=== PATIENT | female | born 1935 | race Caucasian/White ===

== ENCOUNTER 2017-03-07 15:25 | Emergency (ER) | payer OTHER ==
[~2017-03-07] VITALS: Ht 152.4 cm; Wt 65.0 kg
[~2017-03-07 15:25] MED LIST: CALC-137 PO; CETI10 PO; CLON.1 PO; D3400CAP PO; DONE5TAB14 PO; FLUO20TA20 PO; MESA800 PO
[2017-03-07 15:29] VITALS: BP 175/72; PULSE 69; RESP 14; TEMP 97.6; O2SAT 96
[2017-03-07] MEDS ORDERED: SODIUM CHLOR 0.9% 1000 ML INJ 1,000 ML IV SCH (15:49)
--- NOTE | 2017-03-07 15:51 | PD ---
HPI Chief Complaint: GI Complaint Time Seen by Provider: 15:51 Travel History International Travel<30 days: No Contact w/Intl Traveler<30days: No Traveled to known affect area: No History of Present Illness HPI 81 year-old female history of dementia, Crohn's disease, presents to the emergency department with her family for evaluation of nausea and vomiting for the last 2-3 days. Patient has also had diarrhea but at times does due to her Crohn's so her family is not as concerned about this. She has had no hematemesis or hematuria or hematochezia. Patient has been otherwise been acting herself. She has had no fever or chills. She does report some left lower abdominal pain, described as a "pinch". Denies any urinary symptoms. Denies chest pain or tightness. No difficulty breathing. She has no other symptoms to report. PFSH Past Medical History Arthritis: Yes Asthma: No Blood Disorders: No Anxiety: Yes Depression: Yes Heart Rhythm Problems: No Cancer: No Cardiovascular Problems: Yes (HTN) High Cholesterol: Yes Chest Pain: No Congestive Heart Failure: No COPD: No Cerebrovascular Accident: Yes (2 years ) Dementia: Yes Diabetes: No Diminished Hearing: No Endocrine: No Gastrointestinal Disorders: Yes (Crohns disease) Genitourinary: No Headaches: Yes Hypertension: Yes Immune Disorder: No Implanted Vascular Access Dvce: No Musculoskeletal: Yes Neurologic: Yes (CVA 2016) Psychiatric: Yes Reproductive: No Respiratory: Yes (hx: resp infections) Immunizations Current: Yes Migraines: No Seizures: No Shingles: Yes Sleep Apnea: No Menopausal: Yes Past Surgical History Abdominal Surgery: Yes (bowel resection for Crohns. ) AICD: No Insulin Pump: No Joint Replacement: No Pacemaker: No Other Surgery: Yes Social History Alcohol Use: Yes (1X PER WEEK) Tobacco Use: No Substance Use: No Allergies-Medications (Allergen,Severity, Reaction): Coded Allergies: Promethazine (Verified Allergy, Severe, SEIZURE, 06/24/16) Reported Meds & Prescriptions Reported Meds & Active Scripts Active Zofran Odt (Ondansetron Odt) 4 Mg Tab 4 Mg SL Q6HR PRN Flagyl (Metronidazole) 500 Mg Tab 500 Mg PO TID 10 Days Cipro (Ciprofloxacin HCl) 500 Mg Tab 500 Mg PO BID 10 Days Reported Calcium (Calcium Carbonate) 600 Mg Tab 600 Mg PO BID Zyrtec (Cetirizine HCl) 10 Mg Tablet 10 Mg PO DAILY PRN Vitamin D3 (Cholecalciferol) 1,000 Unit Tab 1,000 Units PO DAILY Catapres (Clonidine) 0.1 Mg Tab 0.1 Mg PO Q6HR PRN Namenda (Memantine) 10 Mg Tab 10 Mg PO BID Paxil (Paroxetine HCl) 20 Mg Tablet 20 Mg PO HS Lialda (Mesalamine) 1.2 Gm Tabdr 1.2 Gm PO BID Take with a meal. Imuran (Azathioprine) 50 Mg Tab 50 Mg PO DAILY Hazardous agent: use appropriate precautions for handling and disposal. Protonix (Pantoprazole Sodium) 40 Mg Tab 40 Mg PO DAILY Questran (Cholestyramine) 4 Gm/Pkt Powd 4 Gm PO BID 1 packet contains 4gm of cholestyramine. Zantac (Ranitidine HCl) 150 Mg Tab 150 Mg PO BID Acetaminophen Pm Caplet (Acetaminophen/Diphenhydramine) 1 Each Tablet 2,000 Mg PO HS Tylenol Extra Strength (Acetaminophen) 500 Mg Tablet 2,000 Mg PO Q6HR PRN Loperamide (Loperamide HCl) 2 Mg Tablet 2 Mg PO 3X A WEEK Tessalon Perles (Benzonatate) 100 Mg Cap 200 Mg PO TID PRN Elidel 1% Topical (Pimecrolimus 1% Topical) 30 Gram Cream 1 Applic TOPICAL BID Bactroban Topical (Mupirocin) 22 Gm Cream 1 Applic TOPICAL BID Review of Systems Except as stated in HPI: all other systems reviewed are Neg Physical Exam Narrative GENERAL: Well-nourished elderly female patient, in no acute distress SKIN: Focused skin assessment warm/dry. HEAD: Atraumatic. Normocephalic. EYES: Pupils equal and round. No scleral icterus. No injection or drainage. ENT: No nasal bleeding or discharge. Mucous membranes pink and moist. NECK: Trachea midline. No JVD. CARDIOVASCULAR: Regular rate and rhythm. No murmur appreciated. RESPIRATORY: No accessory muscle use. Clear to auscultation. Breath sounds equal bilaterally. GASTROINTESTINAL: Abdomen soft,nondistended. Left lower quadrant tenderness to palpation.. Hepatic and splenic margins not palpable. MUSCULOSKELETAL: No obvious deformities. No clubbing. No cyanosis. No edema. NEUROLOGICAL: Awake and alert. No obvious cranial nerve deficits. Motor grossly within normal limits. Normal speech. Data Data Last Documented VS Vital Signs Date Time Temp Pulse Resp B/P Pulse Ox O2 Delivery O2 Flow Rate FiO2 03/07/17 19:52 69 14 152/77 97 03/07/17 17:11 Room Air 03/07/17 15:29 97.6 Orders Complete Blood Count With Diff (03/07/17 15:49) Comprehensive Metabolic Panel (03/07/17 15:49) Lipase (03/07/17 15:49) Prothrombin Time / Inr (Pt) (03/07/17 15:49) Act Partial Throm Time (Ptt) (03/07/17 15:49) Urinalysis - C+S If Indicated (03/07/17 15:49) Ct Abd/Pel W Iv Contrast(Rout) (03/07/17 15:49) Iv Access Insert/Monitor (03/07/17 15:49) Ecg Monitoring (03/07/17 15:49) Oximetry (03/07/17 15:49) Ondansetron Inj (Zofran Inj) (03/07/17 16:00) Sodium Chlor 0.9% 1000 Ml Inj (Ns 1000 M (03/07/17 15:49) Sodium Chloride 0.9% Flush (Ns Flush) (03/07/17 16:00) Electrocardiogram (03/07/17 15:49) Chest, Single Ap (03/07/17 15:49) Iohexol 350 Inj (Omnipaque 350 Inj) (03/07/17 17:42) Ciprofloxacin (Cipro) (03/07/17 20:15) Metronidazole (Flagyl) (03/07/17 20:15) Ondansetron Odt (Zofran Odt) (03/07/17 20:15) Labs Laboratory Tests Test 03/07/17 03/07/17 16:00 18:10 White Blood Count 8.7 TH/MM3 Red Blood Count 4.27 MIL/MM3 Hemoglobin 13.2 GM/DL Hematocrit 38.4 % Mean Corpuscular Volume 90.0 FL Mean Corpuscular Hemoglobin 30.9 PG Mean Corpuscular Hemoglobin 34.4 % Concent Red Cell Distribution Width 12.9 % Platelet Count 193 TH/MM3 Mean Platelet Volume 8.7 FL Neutrophils (%) (Auto) 87.6 % Lymphocytes (%) (Auto) 7.0 % Monocytes (%) (Auto) 4.5 % Eosinophils (%) (Auto) 0.6 % Basophils (%) (Auto) 0.3 % Neutrophils # (Auto) 7.6 TH/MM3 Lymphocytes # (Auto) 0.6 TH/MM3 Monocytes # (Auto) 0.4 TH/MM3 Eosinophils # (Auto) 0.1 TH/MM3 Basophils # (Auto) 0.0 TH/MM3 CBC Comment DIFF FINAL Differential Comment Prothrombin Time 11.3 SEC Prothromb Time International 1.0 RATIO Ratio Activated Partial 23.9 SEC Thromboplast Time Sodium Level 138 MEQ/L Potassium Level 4.0 MEQ/L Chloride Level 106 MEQ/L Carbon Dioxide Level 23.5 MEQ/L Anion Gap 9 MEQ/L Blood Urea Nitrogen 21 MG/DL Creatinine 0.65 MG/DL Estimat Glomerular Filtration 87 ML/MIN Rate Random Glucose 114 MG/DL Calcium Level 9.6 MG/DL Total Bilirubin 0.9 MG/DL Aspartate Amino Transf 31 U/L (AST/SGOT) Alanine Aminotransferase 28 U/L (ALT/SGPT) Alkaline Phosphatase 84 U/L Total Protein 8.0 GM/DL Albumin 3.6 GM/DL Lipase 150 U/L Urine Color YELLOW Urine Turbidity CLEAR Urine pH 6.0 Urine Specific [place] 1.035 Urine Protein TRACE mg/dL Urine Glucose (UA) NEG mg/dL Urine Ketones TRACE mg/dL Urine Occult Blood NEG Urine Nitrite NEG Urine Bilirubin NEG Urine Urobilinogen LESS THAN 2.0 MG/DL Urine Leukocyte Esterase NEG Urine WBC LESS THAN 1 /hpf Urine Squamous Epithelial <1 /hpf Cells Urine Mucus FEW /lpf Microscopic Urinalysis Comment CULT NOT INDICATED MDM Medical Decision Making Medical Screen Exam Complete: Yes Emergency Medical Condition: Yes Medical Record Reviewed: Yes Differential Diagnosis Gastritis versus colitis versus gastroenteritis versus diverticulitis versus electrolyte abnormality versus UTI versus dehydration Narrative Course 81-year-old female presents to the emergency department for evaluation. Patient appears without distress. She does have some tenderness to palpation in the left lower quadrant. CBC and CMP are without acute concern. Urinalysis is unremarkable. CT imaging of the abdomen and pelvis shows acute diverticulitis in the sigmoid colon. It also shows a left lobe hepatic cyst. A left upper pole renal cyst. Postsurgical changes in the right side of the colon. Last Impressions Chest X-Ray 03/07/17 0596 Signed Impressions: Service Date/Time: Tuesday, March 07, 2017 16:04 - CONCLUSION: 1. No acute findings identified. Cy Garcia MD Patient is sitting up in the bed, eating ice chips and drinking Gatorade. I discussed the patient with my attending physician. She'll be started on Cipro and Flagyl. She'll be discharged home at this time to follow-up with primary care provider. She agrees to return immediately with any acute worsening of symptoms.. Diagnosis Primary Impression: Diverticulitis Qualified Code: K57.32 - Diverticulitis of large intestine without perforation or abscess without bleeding Additional Impressions: Nausea & vomiting Qualified Code: R11.2 - Non-intractable vomiting with nausea, unspecified vomiting type Diarrhea Qualified Code: R19.7 - Diarrhea, unspecified type Referrals: [facility] Writer / Runner Primary Care Physician Patient Instructions: Diverticulitis (ED), Diverticulitis Diet (ED), General Instructions Additional Instructions: [place] diet Start with clear liquids and advance as tolerated Follow-up with a primary care provider Return immediately with any acute worsening of symptoms Med/Other Pt SpecificInfo: Prescription(s) given Scripts Ondansetron Odt (Zofran Odt)4 Mg Tab4 Mg SL Q6HR PRN (Nausea/Vomiting) #15 TAB Ref 0 Prov:Rupinder [place] 03/07/17 Metronidazole (Flagyl)500 Mg [id number] Mg PO TID 10 Days Ref 0 Prov:Rupinder [place] 03/07/17 Ciprofloxacin (Cipro)500 Mg [id number] Mg PO BID 10 Days Ref 0 Prov:Rupinder [place] 03/07/17 Disposition: 01 DISCHARGE HOME Condition: Stable Rupinder [place] Mar 07, 2017 15:51
[2017-03-07] MEDS ORDERED: ONDANSETRON HCL 4 MG/2 ML VIAL IVP ONE (16:00)
[2017-03-07] MEDS ORDERED: SODIUM CHLORIDE 0.9% FLUSH 10 ML FLUSH IV FLUSH PRN (16:00)
[2017-03-07 16:26] LABS: AUTOMATED NEUTROPHIL # 7.6 TH/MM3 (1.8-7.7); BASOPHIL % 0.3 % (0.0-2.0); EOSINOPHIL # 0.1 TH/MM3 (0-0.4); EOSINOPHIL % 0.6 % (0.0-4.0); HEMATOCRIT 38.4 % (35.0-46.0); HEMO FLAGS DIFF FINAL; LYMPHOCYTE # 0.6 TH/MM3 (1.0-4.8); MEAN CORPUSCULAR HEMOGLOBIN 30.9 PG (27.0-34.0); MEAN CORPUSCULAR HGB CONC 34.4 % (32.0-36.0); MONO % 4.5 % (0.0-8.0); NEUT % 87.6 % (16.0-70.0); PLATELET COUNT 193 TH/MM3 (150-450); RED BLOOD COUNT 4.27 MIL/MM3 (4.00-5.30); RED CELL DISTRIBUTION WIDTH 12.9 % (11.6-17.2); WHITE BLOOD COUNT 8.7 TH/MM3 (4.0-11.0)
--- NOTE | 2017-03-07 16:34 | RADRPT ---
EXAM DATE/TIME: 03/07/2017 16:04 [facility] COMPARISON: SPINE LUMBAR LTD (AP & LAT), June 24, 2016, 12:07. INDICATIONS : Shortness of breath, nausea, and vomitting. MEDICAL HISTORY : Hypertension. SURGICAL HISTORY : None. ENCOUNTER: Initial ACUITY: 3 days PAIN SCORE: 0/10 LOCATION: Bilateral chest FINDINGS: There are mild chronic interstitial changes within the pulmonary parenchyma. The heart is normal in s ize. The visualized bony structures are grossly intact. CONCLUSION: 1. No acute findings identified. Cy Garcia MD on March 07, 2017 at 16:31 Board Certified Radiologist. This report was verified electronically.
[2017-03-07 16:49] LABS: ALT (GPT) 28 U/L (10-53); ANION GAP 9 MEQ/L (5-15); AST (GOT) 31 U/L (15-37); BICARBONATE 23.5 MEQ/L (21.0-32.0); BLOOD UREA NITROGEN 21 MG/DL (7-18); CHLORIDE 106 MEQ/L (98-107); GLOMERULAR FILTRATION RATE 87 ML/MIN (>89); SODIUM (NA) 138 MEQ/L (136-145)
[2017-03-07 16:51] LABS: ALKALINE PHOSPHATASE 84 U/L (45-117); APTT (PATIENT) 23.9 SEC (24.3-30.1); PROTHROMBIN TIME - PATIENT 11.3 SEC (9.8-11.6); TOTAL BILIRUBIN ADULT 0.9 MG/DL (0.2-1.0)
[2017-03-07] MEDS ORDERED: IOHEXOL 350 MG/ML 10 ML VIAL (for RAD DIAG) IV ONE (17:42)
[2017-03-07 19:07] LABS: BLOOD, URINE NEG (NEG); COMMENT (UR) CULT NOT INDICATED; CULTURE IF INDICATED CULT NOT INDICATED; GLUCOSE,URINE NEG (NEG); KETONE, URINE TRACE mg/dL (NEG); MUCUS URINE FEW /lpf (OCC); NITRITE,URINE NEG (NEG); SQUAMOUS EPITHELIAL CELL URINE <1 /hpf (0-5); URINE COLOR YELLOW (YELLW/STRAW)
[2017-03-07 19:52] VITALS: BP 152/77; PULSE 69; RESP 14; O2SAT 97
[2017-03-07] MEDS ORDERED: metroNIDAZOLE 500 MG TAB PO ONE (20:15)
[2017-03-07] MEDS ORDERED: ONDANSETRON ODT 4 MG TAB PO ONE (20:15)
[2017-03-07] MEDS ORDERED: CIPROFLOXACIN 500 MG TAB PO ONE (20:15)
[2017-03-07] MEDS ORDERED: METR-1 PO (20:16)
[2017-03-07] MEDS ORDERED: CIPR-9 PO (20:16)
[2017-03-07] MEDS ORDERED: ZOFR4TAB3 SL (20:16)
[2017-03-07] MEDS ORDERED: MUPI2%T TOPICAL (20:27)
[2017-03-07] MEDS ORDERED: ELID1CRE TOPICAL (20:28)
[2017-03-07] MEDS ORDERED: LOPE2TAB21 PO (20:33)
[2017-03-07] MEDS ORDERED: BENZ100 PO (20:33)
[2017-03-07] MEDS ORDERED: ACET-822 PO (20:33)
[2017-03-07] MEDS ORDERED: ACET25TA2 PO (20:34)
[2017-03-07] MEDS ORDERED: CETI-1 PO (20:46)
[2017-03-07] MEDS ORDERED: VITA100018 PO (20:46)
[2017-03-07] MEDS ORDERED: QUES4POW PO (20:46)
[2017-03-07] MEDS ORDERED: PROT40TA PO (20:46)
[2017-03-07] MEDS ORDERED: IMUR50TA PO (20:46)
[2017-03-07] MEDS ORDERED: LIAL1.2T PO (20:46)
[2017-03-07] MEDS ORDERED: NAME10TA PO (20:46)
[2017-03-07] MEDS ORDERED: PAXI20TA10 PO (20:46)
[2017-03-07] MEDS ORDERED: ZANT150T2 PO (20:46)
[2017-03-07] MEDS ORDERED: CALC600T25 PO (20:46)
[2017-03-07] MEDS ORDERED: CLON.1 PO (20:46)
--- NOTE | 2017-03-08 04:24 | RADRPT ---
EXAM DATE/TIME: 03/07/2017 17:32 [facility] COMPARISON: CT ABDOMEN & PELVIS W CONTRAST, August 17, 2015, 18:58. INDICATIONS : Abdominal pain with nausea and vomiting. IV CONTRAST: 90 cc Omnipaque 350 (iohexol) IV ORAL CONTRAST: No oral contrast ingested. RADIATION DOSE: 9.96 CTDIvol (mGy) MEDICAL HISTORY : Cardiovascular disease. Hypertension. Dementia.CVA 2015 SURGICAL HISTORY : bowel resection for Crohn's disease ENCOUNTER: Initial ACUITY: 1 day PAIN SCALE: 0/10 LOCATION: lower quadrant TECHNIQUE: Volumetric scanning of the abdomen and pelvis was performed. Using automated exposure control and ad justment of the mA and/or kV according to patient size, radiation dose was kept as low as reasonably achievable to obtain optimal diagnostic quality images. FINDINGS: LOWER LUNGS: Mild chronic bilateral lower lobe interstitial opacity. LIVER: 1.1 cm round hypodensity in the left lobe of the liver is unchanged. Liver is otherwise homogeneous a nd within normal limits. Gallbladder is distended. No pericholecystic inflammatory changes identified . Appearance is very similar to the prior study of 2014. SPLEEN: Normal size without lesion. PANCREAS: Within normal limits. KIDNEYS: 2.1 cm cyst in the upper pole of the left kidney. Kidneys otherwise within normal limits. No evidence of hydronephrosis. ADRENAL GLANDS: Within normal limits. VASCULAR: Diffuse aortic calcification. Aortic diameter are within normal limits. BOWEL/MESENTERY: Small hiatal hernia. No evidence of bowel dilatation. Numerous colonic diverticula. There is a fluid filled diverticulum of the mid sigmoid colon with mild surrounding hazy/stranding opacity indicating acute diverticulitis. Postsurgical findings of the right side of the colon. Appendix not identified. No free air or free fluid. ABDOMINAL WALL: Within normal limits. RETROPERITONEUM: There is no lymphadenopathy. BLADDER: No wall thickening or mass. REPRODUCTIVE: Calcified uterine fibroid in the fundus. INGUINAL: There is no lymphadenopathy or hernia. MUSCULOSKELETAL: Prominent degenerative findings of the lower lumbar spine facet joints. CONCLUSION: 1. Acute sigmoid colon diverticulitis. No evidence of abscess or free air. 2. Left lobe hepatic cyst unchanged. 3. Left upper pole renal cyst. 4. Lumbar spine degenerative findings. 5. Postsurgical findings right-sided colon. Tyler Hill MD on March 07, 2017 at 19:39 Board Certified Radiologist. This report was verified electronically.
--- NOTE | 2017-03-08 13:29 | EKG ---
Date Performed: 03/07/2017 Time Performed: 17:14:37 PTAGE: 81 years EKG: Sinus rhythm NORMAL ECG PREVIOUS TRACING : 12/22/2015 18.04 Compared to prior tracing no significant change DOCTOR: David Rausch Interpretating Date/Time 03/08/2017 13:27:22
== END 2017-03-07 21:17 | disposition home or self-care (01) ==
LOC: NEPC 15:25
DX: K57.32 Diverticulitis of large intestine without perforation or abscess without bleeding (principal); R11.2 Nausea with vomiting, unspecified; R19.7 Diarrhea, unspecified; F03.90 Unspecified dementia, unspecified severity, without behavioral disturbance, psychotic disturbance, mood disturbance, and anxiety; K50.90 Crohn's disease, unspecified, without complications; I10 Essential (primary) hypertension; E78.00 Pure hypercholesterolemia, unspecified; Z86.73 Personal history of transient ischemic attack (TIA), and cerebral infarction without residual deficits
CPT/HCPCS: 71010; 74177; 80053; 81001; 83690; 85025; 85610; 85730; 93005; 96374; 99284; J2405; J7030; Q9967

== ENCOUNTER 2017-09-04 11:53 | Emergency (ER) | payer OTHER ==
[~2017-09-04] VITALS: Ht 152.4 cm; Wt 55.0 kg
[~2017-09-04 11:53] MED LIST changes: +ACET-822 PO; +BENZ100 PO; -CALC-137 PO; +CALC600T5 PO; +CETI-1 PO; -CETI10 PO; +CIPR-9 PO; -D3400CAP PO; +DIPH25TA31 PO; -DONE5TAB14 PO; +ELID1CRE TOPICAL; -FLUO20TA20 PO; +IMUR50TA5 PO; +LIAL1.2T PO; +LOPE2TAB21 PO; -MESA800 PO; +METR-1 PO; +MUPI2%T TOPICAL; +NAME10TA PO; +PAXI20TA26 PO; +PROT40TA PO; +QUES4POW PO; +VITA100018 PO; +ZANT150T2 PO; +ZOFR4TAB3 SL
[2017-09-04 11:55] VITALS: BP 122/60; PULSE 75; RESP 17; TEMP 98.1; O2SAT 100
[2017-09-04] MEDS ORDERED: ONDANSETRON HCL 4 MG/2 ML VIAL IVP ONE (12:30)
[2017-09-04 13:35] LABS: BASOPHIL % 0.6 % (0.0-2.0); EOSINOPHIL # 0.2 TH/MM3 (0-0.4); EOSINOPHIL % 2.5 % (0.0-4.0); HEMATOCRIT 39.3 % (35.0-46.0); HEMOGLOBIN 13.1 GM/DL (11.6-15.3); LYMPH % 11.6 % (9.0-44.0); LYMPHOCYTE # 0.8 TH/MM3 (1.0-4.8); MEAN CELL VOLUME 92.6 FL (80.0-100.0); MEAN CORPUSCULAR HEMOGLOBIN 30.9 PG (27.0-34.0); MEAN CORPUSCULAR HGB CONC 33.3 % (32.0-36.0); MONO % 9.3 % (0.0-8.0); MONOCYTE # 0.6 TH/MM3 (0-0.9); PLATELET COUNT 231 TH/MM3 (150-450); RED BLOOD COUNT 4.24 MIL/MM3 (4.00-5.30); RED CELL DISTRIBUTION WIDTH 13.6 % (11.6-17.2); WHITE BLOOD COUNT 6.6 TH/MM3 (4.0-11.0)
[2017-09-04] MEDS ORDERED: SODIUM CHLORID 0.9% 500 ML INJ 500 ML IV ONE (13:45)
[2017-09-04 13:49] LABS: INTERNATIONAL NORMALIZED RATIO 1.2 RATIO
[2017-09-04 13:54] LABS: ALBUMIN 3.8 GM/DL (3.4-5.0); AST (GOT) 33 U/L (15-37); BICARBONATE 26.6 MEQ/L (21.0-32.0); CALCIUM 9.5 MG/DL (8.5-10.1); CHLORIDE 106 MEQ/L (98-107); CREATININE 0.82 MG/DL (0.50-1.00); GLOMERULAR FILTRATION RATE 67 ML/MIN (>89); GLUCOSE,RANDOM 88 MG/DL (74-106); LIPASE 164 U/L (73-393); SODIUM (NA) 140 MEQ/L (136-145)
--- NOTE | 2017-09-04 13:57 | PD ---
HPI Chief Complaint: GI Complaint Time Seen by Provider: 12:24 Travel History International Travel<30 days: No Contact w/Intl Traveler<30days: No Traveled to known affect area: No History of Present Illness HPI 82 year old female presents to the emergency department for evaluation of nausea and vomiting x 4 days. Patient has a history of dementia and presents with her daughter that is also her caregiver. Daughter states patient has not been able to keep any food or drink down. She reports that the patient doesn't have abdominal pain or nausea unless she has eaten something, then she reports relief after vomiting. Patient has a history of Crohn's disease and the daughter believes this may be an exacerbation, however she denies any fever, chills, malaise, abdominal pain, or diarrhea. Patient reports mild burning sensation with urination. Denies any hematuria. Denies any hematemesis and she is not currently on any blood thinners. PFSH Past Medical History Arthritis: Yes Asthma: No Blood Disorders: No Anxiety: Yes Depression: Yes Heart Rhythm Problems: No Cancer: No Cardiovascular Problems: Yes (HTN) High Cholesterol: Yes Chest Pain: No Congestive Heart Failure: No COPD: No Cerebrovascular Accident: Yes (2 years ) Dementia: Yes Diabetes: No Diminished Hearing: No Endocrine: No Gastrointestinal Disorders: Yes (Crohns disease) Genitourinary: No Headaches: Yes Hypertension: Yes Immune Disorder: No Implanted Vascular Access Dvce: No Musculoskeletal: Yes Neurologic: Yes (CVA 2016) Psychiatric: Yes Reproductive: No Respiratory: Yes (hx: resp infections) Immunizations Current: Yes Migraines: No Seizures: No Shingles: Yes Sleep Apnea: No Menopausal: Yes Past Surgical History Abdominal Surgery: Yes (bowel resection for Crohns. ) AICD: No Insulin Pump: No Joint Replacement: No Pacemaker: No Other Surgery: Yes Social History Alcohol Use: No Tobacco Use: No Substance Use: No Allergies-Medications (Allergen,Severity, Reaction): Coded Allergies: promethazine (Unverified Allergy, Severe, SEIZURE, 05/06/17) Reported Meds & Prescriptions Reported Meds & Active Scripts Active Reported Calcium (Calcium Carbonate) 600 Mg Tab 600 Mg PO BID Zyrtec (Cetirizine HCl) 10 Mg Tablet 10 Mg PO DAILY PRN Vitamin D3 (Cholecalciferol) 1,000 Unit Tab 1,000 Units PO DAILY Namenda (Memantine) 10 Mg Tab 10 Mg PO BID Paxil (Paroxetine HCl) 20 Mg Tablet 20 Mg PO HS Lialda (Mesalamine) 1.2 Gm Tabdr 1.2 Gm PO BID Take with a meal. Imuran (Azathioprine) 50 Mg Tab 50 Mg PO DAILY Hazardous agent: use appropriate precautions for handling and disposal. Protonix (Pantoprazole Sodium) 40 Mg Tab 40 Mg PO DAILY Questran (Cholestyramine) 4 Gm/Pkt Powd 4 Gm PO BID 1 packet contains 4gm of cholestyramine. Zantac (Ranitidine HCl) 150 Mg Tab 150 Mg PO BID Acetaminophen Pm Caplet (Acetaminophen/Diphenhydramine) 1 Each Tablet 1 Tab PO HS Tylenol Extra Strength (Acetaminophen) 500 Mg Tablet 2,000 Mg PO Q6HR PRN Loperamide (Loperamide HCl) 2 Mg Tablet 2 Mg PO 3X A WEEK Elidel 1% Topical (Pimecrolimus 1% Topical) 30 Gram Cream 1 Applic TOPICAL BID Bactroban Topical (Mupirocin) 22 Gm Cream 1 Applic TOPICAL BID Review of Systems Except as stated in HPI: all other systems reviewed are Neg Physical Exam Narrative GENERAL: Well-nourished, well-developed 82 year old female patient in no acute distress, smiling, interactive and answers simple questions but referring the majority of the talking to her daughter. Nontoxic appearing. SKIN: Focused skin assessment warm/dry. HEAD: Normocephalic. Atraumatic. EYES: No scleral icterus. No injection or drainage. NECK: Supple, trachea midline. No JVD or lymphadenopathy. CARDIOVASCULAR: Regular rate and rhythm without murmurs, gallops, or rubs. RESPIRATORY: Breath sounds equal bilaterally. No accessory muscle use. GASTROINTESTINAL: Abdomen soft, non-tender, nondistended. MUSCULOSKELETAL: No cyanosis, or edema. BACK: Nontender without obvious deformity. No CVA tenderness. Data Data Last Documented VS Vital Signs Date Time Temp Pulse Resp B/P (MAP) Pulse Ox O2 Delivery O2 Flow Rate FiO2 09/04/17 13:03 (80) Room Air 09/04/17 12:17 24 09/04/17 11:55 98.1 75 100 Orders Orders Complete Blood Count With Diff (09/04/17 12:26) Comprehensive Metabolic Panel (09/04/17 12:26) Lipase (09/04/17 12:26) Prothrombin Time / Inr (Pt) (09/04/17 12:26) Act Partial Throm Time (Ptt) (09/04/17 12:26) Urinalysis - C+S If Indicated (09/04/17 12:26) Ct Abd/Pel W Iv Contrast(Rout) (09/04/17 12:26) Iv Access Insert/Monitor (09/04/17 12:26) Ecg Monitoring (09/04/17 12:26) Oximetry (09/04/17 12:26) Ondansetron Inj (Zofran Inj) (09/04/17 12:30) Electrocardiogram (09/04/17 12:26) Sodium Chlorid 0.9% 500 Ml Inj (Ns 500 M (09/04/17 13:45) Cath For Specimen (09/04/17 13:35) Iohexol 350 Inj (Omnipaque 350 Inj) (09/04/17 14:23) Labs Laboratory Tests Test 09/04/17 13:00 09/04/17 15:00 White Blood Count 6.6 TH/MM3 Red Blood Count 4.24 MIL/MM3 Hemoglobin 13.1 GM/DL Hematocrit 39.3 % Mean Corpuscular Volume 92.6 FL Mean Corpuscular Hemoglobin 30.9 PG Mean Corpuscular Hemoglobin Concent 33.3 % Red Cell Distribution Width 13.6 % Platelet Count 231 TH/MM3 Mean Platelet Volume 9.0 FL Neutrophils (%) (Auto) 76.0 % Lymphocytes (%) (Auto) 11.6 % Monocytes (%) (Auto) 9.3 % Eosinophils (%) (Auto) 2.5 % Basophils (%) (Auto) 0.6 % Neutrophils # (Auto) 5.0 TH/MM3 Lymphocytes # (Auto) 0.8 TH/MM3 Monocytes # (Auto) 0.6 TH/MM3 Eosinophils # (Auto) 0.2 TH/MM3 Basophils # (Auto) 0.0 TH/MM3 CBC Comment DIFF FINAL Differential Comment Prothrombin Time 12.0 SEC Prothromb Time International Ratio 1.2 RATIO Activated Partial Thromboplast Time 25.2 SEC Blood Urea Nitrogen 21 MG/DL Creatinine 0.82 MG/DL Random Glucose 88 MG/DL Total Protein 7.9 GM/DL Albumin 3.8 GM/DL Calcium Level 9.5 MG/DL Alkaline Phosphatase 73 U/L Aspartate Amino Transf (AST/SGOT) 33 U/L Alanine Aminotransferase (ALT/SGPT) 21 U/L Total Bilirubin 0.9 MG/DL Sodium Level 140 MEQ/L Potassium Level 3.9 MEQ/L Chloride Level 106 MEQ/L Carbon Dioxide Level 26.6 MEQ/L Anion Gap 7 MEQ/L Estimat Glomerular Filtration Rate 67 ML/MIN Lipase 164 U/L Urine Color YELLOW Urine Turbidity CLEAR Urine pH 5.5 Urine Specific [place] GREATER THAN 1.050 Urine Protein TRACE mg/dL Urine Glucose (UA) NEG mg/dL Urine Ketones 10 mg/dL Urine Occult Blood NEG Urine Nitrite NEG Urine Bilirubin NEG Urine Urobilinogen LESS THAN 2.0 MG/DL Urine Leukocyte Esterase NEG Urine RBC 1 /hpf Urine WBC 2 /hpf Urine Squamous Epithelial Cells <1 /hpf Urine Mucus FEW /lpf Microscopic Urinalysis Comment CULT NOT INDICATED MDM Medical Decision Making Medical Screen Exam Complete: Yes Emergency Medical Condition: Yes Differential Diagnosis Differential diagnosis include but not limited to gastroenteritis, small bowel obstruction, large bowel obstruction, viral syndrome, Crohn's exacerbation Narrative Course Patient placed on monitor, IV obtained, blood work since the lab. CBC, CMP, lipase, PT INR, UA ordered and pending. EKG ordered and pending. Abdominal CT ordered and pending. Patient has no major medical cardiac history. 500 mL NS bolus, 4mg Zofran IV ordered. Patient attempted to collect urine for UA and missed. Mini catheter ordered to collect specimen. Blood work shows no acute abnormality, UA shows no acute abnormality outside mild dehydration. EKG shows sinus rhythm with heart rate 74. CT shows no acute findings. Patient has not vomited or been nauseated since she arrived. Patient will be discharged home with prescription for Zofran and instructions to follow up with the primary care or return to the emergency Department with any worsening condition. Diagnosis Primary Impression: Nausea & vomiting Qualified Codes: R11.2 - Nausea with vomiting, unspecified Referrals: Primary Care Physician Patient Instructions: Acute Nausea and Vomiting (ED), General Instructions Additional Instructions: Please return to emergency department if your symptoms return or worsen. Follow up with your primary care provider. Take Zofran as prescribed as needed for nausea or vomiting. A take Zofran 30 minutes prior to eating to alleviate nausea Supportive care, diet as tolerated, stay hydrated, get enough rest. Med/Other Pt SpecificInfo: Prescription(s) given Scripts Ondansetron Odt (Zofran Odt) 4 Mg Tab 4 MG SL Q6HR Y for Nausea/Vomiting, #15 TAB 0 Refills Prov: Jeanette Berumen 09/04/17 Disposition: 01 DISCHARGE HOME Condition: Stable Jeanette Berumen Sep 04, 2017 13:57
[2017-09-04 14:03] LABS: ALKALINE PHOSPHATASE 73 U/L (45-117); ALT (GPT) 21 U/L (10-53); BLOOD UREA NITROGEN 21 MG/DL (7-18); TOTAL BILIRUBIN ADULT 0.9 MG/DL (0.2-1.0); TOTAL PROTEIN 7.9 GM/DL (6.4-8.2)
[2017-09-04] MEDS ORDERED: IOHEXOL 350 MG/ML 10 ML VIAL (for RAD DIAG) IVCONTRAST ONE (14:23)
--- NOTE | 2017-09-04 14:49 | RADRPT ---
EXAM DATE/TIME: 09/04/2017 14:10 [facility] COMPARISON: CT ABDOMEN & PELVIS W CONTRAST, March 07, 2017, 17:32. INDICATIONS : Nausea and vomiting. IV CONTRAST: 72 cc Omnipaque 350 (iohexol) IV ORAL CONTRAST: No oral contrast ingested. RADIATION DOSE: 6.64 CTDIvol (mGy) MEDICAL HISTORY : Dementia. Hypertension. SURGICAL HISTORY : Colon resection. ENCOUNTER: Initial ACUITY: 4 - 6 days PAIN SCALE: 0/10 LOCATION: lower quadrant TECHNIQUE: Volumetric scanning of the abdomen and pelvis was performed. Using automated exposure control and ad justment of the mA and/or kV according to patient size, radiation dose was kept as low as reasonably achievable to obtain optimal diagnostic quality images. DICOM format image data is available electro nically for review and comparison. FINDINGS: LOWER LUNGS: The visualized lower lungs are clear. LIVER: Homogeneous density without lesion. 11 mm cyst is identified in the left hepatic lobe. There is no di lation of the biliary tree. No calcified gallstones. SPLEEN: Normal size without lesion. PANCREAS: Within normal limits. KIDNEYS: Normal in size and shape. There is no mass, stone or hydronephrosis. Simple left renal cyst is again noted. ADRENAL GLANDS: Within normal limits. VASCULAR: Aorta is heavily calcified. BOWEL/MESENTERY: Scattered diverticula are seen in the descending and sigmoid colon. There are no active inflammatory changes. ABDOMINAL WALL: Within normal limits. RETROPERITONEUM: There is no lymphadenopathy. BLADDER: No wall thickening or mass. REPRODUCTIVE: Calcified leiomyoma is identified in the fundus of the uterus. INGUINAL: There is no lymphadenopathy or hernia. MUSCULOSKELETAL: Within normal limits for patient age. CONCLUSION: No acute disease. Ej Novak MD on September 04, 2017 at 14:44 Board Certified Radiologist. This report was verified electronically.
[2017-09-04 15:17] LABS: BILIRUBIN, URINE NEG (NEG); BLOOD, URINE NEG (NEG); GLUCOSE,URINE NEG (NEG); KETONE, URINE 10 mg/dL (NEG); MUCUS URINE FEW /lpf (OCC); NITRITE,URINE NEG (NEG); PH, URINE 5.5 (5.0-8.5); SQUAMOUS EPITHELIAL CELL URINE <1 /hpf (0-5); URINE COLOR YELLOW (YELLW/STRAW); URINE LEUKOCYTE ESTERASE NEG (NEG)
[2017-09-04] MEDS ORDERED: ZOFR4TAB3 SL (15:51)
--- NOTE | 2017-09-06 12:23 | EKG ---
Date Performed: 09/04/2017 Time Performed: 12:59:55 PTAGE: 82 years EKG: Sinus rhythm WITH OCCASIONAL VENTRICULAR PREMATURE COMPLEXES WITH OCCASIONAL SUPRAVENTRICULAR PREMATURE COMPLEXES NONSPECIFIC T-WAVE ABNORMALITY BORDERLINE ECG PREVIOUS TRACING : 03/07/2017 17.14 DOCTOR: Erika Keller Interpretating Date/Time 09/06/2017 12:22:20
== END 2017-09-04 17:06 | disposition home or self-care (01) ==
LOC: NEPC 11:53
DX: R11.2 Nausea with vomiting, unspecified (principal); F03.90 Unspecified dementia, unspecified severity, without behavioral disturbance, psychotic disturbance, mood disturbance, and anxiety; K50.90 Crohn's disease, unspecified, without complications; E78.00 Pure hypercholesterolemia, unspecified; I10 Essential (primary) hypertension; Z86.73 Personal history of transient ischemic attack (TIA), and cerebral infarction without residual deficits
CPT/HCPCS: 74177; 80053; 81001; 83690; 85025; 85610; 85730; 93005; 96361; 96374; 99285; J2405; J7040; Q9967

== ENCOUNTER 2017-09-28 15:29 | Emergency (ER) | payer OTHER ==
[~2017-09-28] VITALS: Ht 152.4 cm; Wt 55.0 kg
[~2017-09-28 15:29] MED LIST changes: -BENZ100 PO; -CIPR-9 PO; -CLON.1 PO; -METR-1 PO
[2017-09-28 15:35] VITALS: BP 142/81; PULSE 76; RESP 17; TEMP 98.4; O2SAT 97
[2017-09-28 16:15] LABS: AUTOMATED NEUTROPHIL # 7.6 TH/MM3 (1.8-7.7); BASOPHIL # 0.3 TH/MM3 (0-0.2); BASOPHIL % 3.5 % (0.0-2.0); EOSINOPHIL % 0.5 % (0.0-4.0); HEMOGLOBIN 12.9 GM/DL (11.6-15.3); LYMPH % 6.9 % (9.0-44.0); LYMPHOCYTE # 0.6 TH/MM3 (1.0-4.8); MEAN CELL VOLUME 90.1 FL (80.0-100.0); MEAN CORPUSCULAR HEMOGLOBIN 29.1 PG (27.0-34.0); MEAN CORPUSCULAR HGB CONC 32.3 % (32.0-36.0); MEAN PLATELET VOLUME 8.9 FL (7.0-11.0); MONO % 4.9 % (0.0-8.0); MONOCYTE # 0.4 TH/MM3 (0-0.9); NEUT % 84.2 % (16.0-70.0); PLATELET COUNT 222 TH/MM3 (150-450); RED BLOOD COUNT 4.44 MIL/MM3 (4.00-5.30); RED CELL DISTRIBUTION WIDTH 12.8 % (11.6-17.2); WHITE BLOOD COUNT 8.9 TH/MM3 (4.0-11.0)
[2017-09-28 16:38] LABS: BICARBONATE 26.7 MEQ/L (21.0-32.0); CALCIUM 9.3 MG/DL (8.5-10.1)
[2017-09-28 16:42] LABS: CREATININE 0.68 MG/DL (0.50-1.00)
[2017-09-28] MEDS ORDERED: ZOFR4TAB3 SL (16:47)
[2017-09-28] MEDS ORDERED: CEPH-460 PO (16:49)
--- NOTE | 2017-09-28 16:49 | PD ---
HPI Chief Complaint: GI Complaint Time Seen by Provider: 16:42 Travel History International Travel<30 days: No Contact w/Intl Traveler<30days: No Traveled to known affect area: No History of Present Illness HPI Patient with severe dementia. Accompanied by her daughter with complaints of vomiting for 2 days. Positive sick contacts. Additionally reports rhinorrhea without loose stools or fever. No new rashes. Concerns of a left labia majora lesion. Denies sexual activity. PFSH Past Medical History Arthritis: Yes Asthma: No Blood Disorders: No Anxiety: Yes Depression: Yes Heart Rhythm Problems: No Cancer: No Cardiovascular Problems: Yes (HTN) High Cholesterol: Yes Chest Pain: No Congestive Heart Failure: No COPD: No Cerebrovascular Accident: Yes Dementia: Yes Diabetes: No Diminished Hearing: No Endocrine: No Gastrointestinal Disorders: Yes (Crohns disease) Genitourinary: No Headaches: Yes Hypertension: Yes Immune Disorder: No Implanted Vascular Access Dvce: No Musculoskeletal: Yes Neurologic: Yes (CVA 2016) Psychiatric: Yes Reproductive: No Respiratory: Yes (hx: resp infections) Immunizations Current: Yes Migraines: No Seizures: No Shingles: Yes Sleep Apnea: No Tetanus Vaccination: < 5 Years ?: Not Menopausal: Yes Past Surgical History Abdominal Surgery: Yes (bowel resection for Crohns. ) AICD: No Insulin Pump: No Joint Replacement: No Pacemaker: No Other Surgery: Yes Social History Alcohol Use: No Tobacco Use: No Substance Use: No Allergies-Medications (Allergen,Severity, Reaction): Coded Allergies: promethazine (Unverified Allergy, Severe, SEIZURE, 09/28/17) Reported Meds & Prescriptions Reported Meds & Active Scripts Active Zofran Odt (Ondansetron Odt) 4 Mg Tab 4 Mg SL Q6HR PRN Reported Calcium (Calcium Carbonate) 600 Mg Tab 600 Mg PO BID Zyrtec (Cetirizine HCl) 10 Mg Tablet 10 Mg PO DAILY PRN Vitamin D3 (Cholecalciferol) 1,000 Unit Tab 1,000 Units PO DAILY Namenda (Memantine) 10 Mg Tab 10 Mg PO BID Paxil (Paroxetine HCl) 20 Mg Tablet 20 Mg PO HS Lialda (Mesalamine) 1.2 Gm Tabdr 1.2 Gm PO BID Take with a meal. Imuran (Azathioprine) 50 Mg Tab 50 Mg PO DAILY Hazardous agent: use appropriate precautions for handling and disposal. Protonix (Pantoprazole Sodium) 40 Mg Tab 40 Mg PO DAILY Questran (Cholestyramine) 4 Gm/Pkt Powd 4 Gm PO BID 1 packet contains 4gm of cholestyramine. Zantac (Ranitidine HCl) 150 Mg Tab 150 Mg PO BID Acetaminophen Pm Caplet (Acetaminophen/Diphenhydramine) 1 Each Tablet 1 Tab PO HS Tylenol Extra Strength (Acetaminophen) 500 Mg Tablet 2,000 Mg PO Q6HR PRN Loperamide (Loperamide HCl) 2 Mg Tablet 2 Mg PO 3X A WEEK Elidel 1% Topical (Pimecrolimus 1% Topical) 30 Gram Cream 1 Applic TOPICAL BID Bactroban Topical (Mupirocin) 22 Gm Cream 1 Applic TOPICAL BID Review of Systems ROS Limitations: Poor Historian General / Constitutional: No: Fever Eyes: No: Visual changes HENT: Positive: Rhinorrhea, No: Headaches Cardiovascular: No: Chest Pain or Discomfort Respiratory: No: Shortness of Breath Gastrointestinal: Positive: Vomiting, No: Abdominal Pain Genitourinary: Positive: Other (left labia majora lesion), No: Dysuria Musculoskeletal: No: Pain Skin: No Rash Neurologic: No: Weakness Psychiatric: No: Depression Endocrine: No: Polydipsia Hematologic/Lymphatic: No: Easy Bruising Physical Exam Narrative GENERAL: Well-nourished, well-developed patient. SKIN: Focused skin assessment warm/dry. HEAD: Normocephalic. EYES: No scleral icterus. No injection or drainage. NECK: Supple, trachea midline. No JVD or lymphadenopathy. CARDIOVASCULAR: Regular rate and rhythm without murmurs, gallops, or rubs. RESPIRATORY: Breath sounds equal bilaterally. No accessory muscle use. GASTROINTESTINAL: Abdomen soft, non-tender, nondistended. MUSCULOSKELETAL: No cyanosis, or edema. BACK: Nontender without obvious deformity. No CVA tenderness. Left labia majora with palpable abscess measuring approximately 1 cm without drainage or significant cellulitic change Data Data Last Documented VS Vital Signs Date Time Temp Pulse Resp B/P (MAP) Pulse Ox O2 Delivery O2 Flow Rate FiO2 09/28/17 15:35 98.4 76 17 142/81 (101) 97 Orders Orders Complete Blood Count With Diff (09/28/17 16:08) Basic Metabolic Panel (Bmp) (09/28/17 16:08) Labs Laboratory Tests Test 09/28/17 16:00 White Blood Count 8.9 TH/MM3 Red Blood Count 4.44 MIL/MM3 Hemoglobin 12.9 GM/DL Hematocrit 40.0 % Mean Corpuscular Volume 90.1 FL Mean Corpuscular Hemoglobin 29.1 PG Mean Corpuscular Hemoglobin Concent 32.3 % Red Cell Distribution Width 12.8 % Platelet Count 222 TH/MM3 Mean Platelet Volume 8.9 FL Neutrophils (%) (Auto) 84.2 % Lymphocytes (%) (Auto) 6.9 % Monocytes (%) (Auto) 4.9 % Eosinophils (%) (Auto) 0.5 % Basophils (%) (Auto) 3.5 % Neutrophils # (Auto) 7.6 TH/MM3 Lymphocytes # (Auto) 0.6 TH/MM3 Monocytes # (Auto) 0.4 TH/MM3 Eosinophils # (Auto) 0.0 TH/MM3 Basophils # (Auto) 0.3 TH/MM3 CBC Comment AUTO DIFF Differential Comment AUTO DIFF CONFIRMED Blood Urea Nitrogen 27 MG/DL Creatinine 0.68 MG/DL Random Glucose 102 MG/DL Calcium Level 9.3 MG/DL Sodium Level 138 MEQ/L Potassium Level 3.8 MEQ/L Chloride Level 101 MEQ/L Carbon Dioxide Level 26.7 MEQ/L Anion Gap 10 MEQ/L Estimat Glomerular Filtration Rate 83 ML/MIN MDM Medical Decision Making Medical Screen Exam Complete: Yes Emergency Medical Condition: Yes Differential Diagnosis Viral upper respiratory infection, viral gastritis, abscess, dementia Narrative Course Assessment and plan discussed with daughter at bedside. Patient received a liter normal saline. Diagnosis Primary Impression: Nausea & vomiting Qualified Codes: R11.2 - Nausea with vomiting, unspecified Additional Impressions: Rhinorrhea Abscess of vagina Patient Instructions: General Instructions Additional Instructions: Encouraged [id number] antihistamine for rhinorrhea. Consider nasal irrigation and saltwater gargles. Encouraged [id number] proton pump inhibitor or H2 emilee for gastritis/vomiting. Anti-emetic as needed. [place] high-fiber brat diet. Oral antibiotic for vaginal abscess. Encouraged warm compresses and to keep the area clean and dry. Follow-up with PCP. Return to emergency with any onset of new symptoms. Med/Other Pt SpecificInfo: Prescription(s) given Scripts Cephalexin (Keflex) 500 Mg Cap 500 MG PO Q12H for Infection for 10 Days, #20 CAP 0 Refills Prov: Desean,Kalin R. MD 09/28/17 Ondansetron Odt (Zofran Odt) 4 Mg Tab 4 MG SL Q8HR Y for Nausea/Vomiting for 10 Days, #30 TAB 0 Refills Prov: Kalin Anton MD 09/28/17 Disposition: 01 DISCHARGE HOME Condition: Good Kalin Anton MD Sep 28, 2017 16:49
[2017-09-28] MEDS ORDERED: SODIUM CHLOR 0.9% 1000 ML INJ 1,000 ML IV ONE (17:00)
== END 2017-09-28 17:32 | disposition home or self-care (01) ==
LOC: PHED 15:29
DX: R11.2 Nausea with vomiting, unspecified (principal); J34.89 Other specified disorders of nose and nasal sinuses; N76.0 Acute vaginitis; F03.90 Unspecified dementia, unspecified severity, without behavioral disturbance, psychotic disturbance, mood disturbance, and anxiety; F41.8 Other specified anxiety disorders; I10 Essential (primary) hypertension; K50.90 Crohn's disease, unspecified, without complications; Z86.73 Personal history of transient ischemic attack (TIA), and cerebral infarction without residual deficits
CPT/HCPCS: 80048; 85025; 96360; 99284; J7030

== ENCOUNTER 2017-11-19 16:04 | Emergency (ER) | payer OTHER ==
[~2017-11-19] VITALS: Ht 157.5 cm; Wt 50.0 kg
[~2017-11-19 16:04] MED LIST changes: +CEPH-460 PO
[2017-11-19 16:11] VITALS: BP 163/74; PULSE 65; RESP 16; TEMP 97.4; O2SAT 99
[2017-11-19] MEDS ORDERED: PENI250T PO (16:29)
--- NOTE | 2017-11-19 17:46 | PD ---
HPI Chief Complaint: Respiratory Symptoms Time Seen by Provider: 17:06 Travel History International Travel<30 days: No Contact w/Intl Traveler<30days: No Traveled to known affect area: No History of Present Illness HPI 82yo F with PMH of dementia was brought in by for CXR. Said she has been coughing for a few days and went to urgent care today and they did a saturation and it was in the 70s but it was 99% on RA here. Pt denies any fever , chest pain, sob, n/v, abdominal pain, focal weakness or numbness. Pt said she just wants a CXR. PFSH Past Medical History Arthritis: Yes Asthma: No Blood Disorders: No Anxiety: Yes Depression: Yes Heart Rhythm Problems: No Cancer: No Cardiovascular Problems: Yes (HTN) High Cholesterol: Yes Chest Pain: No Congestive Heart Failure: No COPD: No Cerebrovascular Accident: Yes Dementia: Yes Diabetes: No Diminished Hearing: No Endocrine: No Gastrointestinal Disorders: Yes (Crohns disease) Genitourinary: No Headaches: Yes Hypertension: Yes Immune Disorder: No Implanted Vascular Access Dvce: No Musculoskeletal: Yes Neurologic: Yes (CVA 2016) Psychiatric: Yes Reproductive: No Respiratory: Yes (hx: resp infections) Immunizations Current: Yes Migraines: No Seizures: No Shingles: Yes Sleep Apnea: No Tetanus Vaccination: < 5 Years Influenza Vaccination: Yes Menopausal: Yes Past Surgical History Abdominal Surgery: Yes (bowel resection for Crohns. ) AICD: No Insulin Pump: No Joint Replacement: No Pacemaker: No Other Surgery: Yes Social History Alcohol Use: No Tobacco Use: No Substance Use: No Allergies-Medications (Allergen,Severity, Reaction): Coded Allergies: promethazine (Unverified Allergy, Severe, SEIZURE, 11/19/17) Reported Meds & Prescriptions Reported Meds & Active Scripts Active Reported Penicillin V Potassium 250 Mg Tab Unknown Dose PO DIRECTED Calcium (Calcium Carbonate) 600 Mg Tab 600 Mg PO BID Zyrtec (Cetirizine HCl) 10 Mg Tablet 10 Mg PO DAILY PRN Vitamin D3 (Cholecalciferol) 1,000 Unit Tab 1,000 Units PO DAILY Namenda (Memantine) 10 Mg Tab 10 Mg PO BID Paxil (Paroxetine HCl) 20 Mg Tablet 20 Mg PO HS Lialda (Mesalamine) 1.2 Gm Tabdr 1.2 Gm PO BID Take with a meal. Imuran (Azathioprine) 50 Mg Tab 50 Mg PO DAILY Hazardous agent: use appropriate precautions for handling and disposal. Protonix (Pantoprazole Sodium) 40 Mg Tab 40 Mg PO DAILY Questran (Cholestyramine) 4 Gm/Pkt Powd 4 Gm PO BID 1 packet contains 4gm of cholestyramine. Zantac (Ranitidine HCl) 150 Mg Tab 150 Mg PO BID Acetaminophen Pm Caplet (Acetaminophen/Diphenhydramine) 1 Each Tablet 1 Tab PO HS Tylenol Extra Strength (Acetaminophen) 500 Mg Tablet 2,000 Mg PO Q6HR PRN Elidel 1% Topical (Pimecrolimus 1% Topical) 30 Gram Cream 1 Applic TOPICAL BID Review of Systems Except as stated in HPI: all other systems reviewed are Neg Physical Exam Narrative GENERAL: 82yo F not in distress. SKIN: Focused skin assessment warm/dry. HEAD: Atraumatic. Normocephalic. CARDIOVASCULAR: Regular rate and rhythm. No murmur appreciated. RESPIRATORY: No accessory muscle use. Clear to auscultation. Breath sounds equal bilaterally. GASTROINTESTINAL: Abdomen soft, non-tender, nondistended. MUSCULOSKELETAL: No obvious deformities. No clubbing. No cyanosis. No edema. NEUROLOGICAL: Awake and alert. No obvious cranial nerve deficits. Motor grossly within normal limits. Normal speech. Data Data Last Documented VS Vital Signs Date Time Temp Pulse Resp B/P (MAP) Pulse Ox O2 Delivery O2 Flow Rate FiO2 11/19/17 16:25 Room Air 11/19/17 16:11 97.4 65 16 163/74 (103) 99 Orders Orders Chest, Single Ap (11/19/17 ) [facility] Medical Decision Making Medical Screen Exam Complete: Yes Emergency Medical Condition: Yes Differential Diagnosis URI vs. bronchitis vs. pneumonia Narrative Course 82yo F with cough for a few days was sent from urgent care for CXR. Pt denies any chest pain or sob and just wants a CXR. She is speaking in complete sentences and not in distress. CXR ordered. However, pt appeared to have left the ED before CXR was completed. Diagnosis Primary Impression: Cough Patient Instructions: General Instructions Departure Forms: Tests/Procedures Additional Instructions: Patient left the ED prior to complete evaluation. Med/Other Pt SpecificInfo: No Change to Meds Disposition: 07 AGAINST MEDICAL ADVICE Condition: Stable Dayanna Valente Nov 19, 2017 17:46
== END 2017-11-19 17:40 | disposition left against medical advice (07) ==
LOC: PHED 16:04
DX: R05 Cough (principal); F03.90 Unspecified dementia, unspecified severity, without behavioral disturbance, psychotic disturbance, mood disturbance, and anxiety; I10 Essential (primary) hypertension; E78.00 Pure hypercholesterolemia, unspecified; K50.90 Crohn's disease, unspecified, without complications; F41.9 Anxiety disorder, unspecified; F32.9 Major depressive disorder, single episode, unspecified; Z53.21 Procedure and treatment not carried out due to patient leaving prior to being seen by health care provider; Z86.73 Personal history of transient ischemic attack (TIA), and cerebral infarction without residual deficits; Z88.8 Allergy status to other drugs, medicaments and biological substances; Z79.899 Other long term (current) drug therapy
CPT/HCPCS: 99281